=== PATIENT | male | born 1990 | race Caucasian/White ===

== ENCOUNTER 2021-03-14 11:19 | Emergency (ER) | payer OTHER, MEDICAID, SELFPAY ==
[2021-03-14] VITALS (8 sets, daily range): BP systolic 142; BP diastolic 85; PULSE 50–65; RESP 12–45; TEMP 36.2; O2SAT 97–99; BMI 12.7
--- NOTE | 2021-03-14 11:29 | DI.RAD.S_ITS ---
PROCEDURE: XR CHEST 1V INDICATIONS: chest pain TECHNIQUE: One view of the chest was acquired. COMPARISON: None. FINDINGS: Surgical changes and devices: None. Lungs and pleura: Lungs are clear. No pleural effusions or pneumothorax. Mediastinum: Mediastinal contours appear normal. Heart size is normal. Bones and chest wall: No suspicious bony lesions. Overlying soft tissues appear unremarkable. IMPRESSION: Normal for age, source of current chest pain symptoms is not seen. Dictated by: Blanco Nino M.D. on 03/14/2021 at 11:51 Approved by: Blanco Nino M.D. on 03/14/2021 at 11:51
--- NOTE | 2021-03-14 11:35 | ED_ITS ---
HPI - Chest Pain General Chief Complaint: Chest Pain Stated Complaint: chest pain/shortness of breath/collapsed Time Seen by Provider: 03/14/21 11:32 Source: patient and family Mode of arrival: Ambulatory Limitations: no limitations History of Present Illness HPI narrative: Otherwise healthy 30-year-old male here for evaluation of left- sided chest discomfort. He states that it started a couple days ago. It has b een somewhat intermittent but states he has had some sort of discomfort during this time. Did worsen this morning. No trauma. It is fairly pinpoint on the left side. Worse with taking a deep breath but not worse with movement or touching. No coughing. No sick contacts. Has not tried anything for the symptoms prior to arrival. Review of Systems Constitutional Constitutional: Denies fatigue and Denies fever(s) Eyes Eyes: Denies change in vision Cardiovascular Cardiovascular: Reports chest pain and Reports dyspnea Respiratory Respiratory: Reports pain on inspiration and Reports dyspnea Gastrointestinal Gastrointestinal: Denies abdominal pain, Denies nausea and Denies vomiting Genitourinary Genitourinary: Denies dysuria Genitourinary: Denies dysuria Musculoskeletal Musculoskeletal: Denies arthralgias and Denies myalgias Integumentary/Breasts Skin/Breast: Denies rash Neurologic Neurologic: Denies behavioral changes Psychiatric Psychiatric: Denies behavioral changes Endocrine Endocrine: Denies fatigue Hematologic/Lymphatic On Anticoagulants: No Allergic/Immunologic Allergic/Immunologic: Denies urticaria Patient History Medical History Healthy adult Social History Smoking Status: Current every day smoker Smoking Status: Current every day smoker alcohol intake frequency: 0-2 drinks per day Substance Use Type: does not use Exam Initial Vital Signs Initial Vital Signs: Vital Signs Pulse Oximetry 99 03/14/21 11:23 Const General: cooperative and No comfortable (Uncomfortable) Limitations: mental status not altered HENWI Head: normal to inspection and normocephalic Eyes General: appearance normal, both eyes and all related structures Chest Chest: No crepitus and No tenderness Resp Effort & Inspection: normal respiratory effort Auscultation: clear to auscultation bilaterally Cardio Rate: regular rate Rhythm: regular rhythm GI Inspection: non-distended Palpation: soft Skin Lesions: no lesions Rashes: no rashes Neuro General: patient alert and patient oriented x3 Cognition: normal cognition Speech: speech normal Extrem General: normal to inspection and capillary refill normal Psych Appearance: grossly normal and well kempt Course Orders Ordered: ED Orders 03/14/21 11:25 Complete Blood Count AUTO DIFF Stat Comprehensive Metabolic Panel Stat Lipase Stat Partial Thromboplastin Time Stat Prothrombin Time INR Stat Troponin & CK Cardiac Panel Stat 03/14/21 11:29 XR chest 1V Stat EKG-12 Lead Stat 03/14/21 11:44 COVID19 -Nasal swab/Pre-Proc Stat 03/14/21 12:24 D Dimer Stat Discontinued Medications Ketorolac Tromethamine (Ketorolac 60 Mg/2 Ml Vial) 30 mg IV NOW ONE Stop: 03/14/21 11:36 Last Admin: 03/14/21 12:05 Dose: 30 mg Documented by: MICHEAL Vital Signs Vital signs: Vital Signs - 8 hr 03/14/21 11:23 03/14/21 11:24 03/14/21 11:30 Temperature 97.2 F L Pulse Rate 62 65 Respiratory Rate 12 29 H Blood Pressure 142/85 H Pulse Oximetry 99 99 99 03/14/21 11:45 03/14/21 12:15 03/14/21 12:30 Temperature Pulse Rate 52 L 52 L 51 L Respiratory Rate 45 H 32 H 19 Blood Pressure Pulse Oximetry 98 98 97 03/14/21 12:45 03/14/21 13:00 Temperature Pulse Rate 50 L 55 L Respiratory Rate 24 23 Blood Pressure Pulse Oximetry 98 98 MDM - Chest Pain Lab Data Attestation: I reviewed the patient's lab results. Result diagrams: 03/14/21 11:25 03/14/21 11:25 Labs: Lab Results 03/14/21 03/14/21 03/14/21 Range/Units 11:25 11:25 11:25 WBC 5.7 (4.5-11.0) X10^3/uL RBC 4.49 L (4.5-5.9) X10^6/uL Hgb 14.6 (13.5-17.5) g/dL Hct 41.0 (41-53) % MCV 91.2 (80-100) fL MCH 32.5 (26-34) PG MCHC 35.7 (30-36) % RDW 13.0 (11.6-14.8) % Plt Count 220 (150-400) X10^3/uL Neut % (Auto) 57.3 (50-75) % Lymph % (Auto) 30.3 (25-40) % [place] % (Auto) 7.7 (3-14) % Eos % (Auto) 3.3 (2-4) % Baso % (Auto) 1.4 (0-2) % Neut # (Auto) 3300 (7148-3252) /uL Lymph # (Auto) 1700 (5539-9877) /uL [place] # (Auto) 400 (0-900) /uL Eos # (Auto) 200 (0-450) /uL Baso # (Auto) 100 (0-100) /uL PT 12.2 (10.1-12.7) SECONDS INR 1.1 (0.9-1.3) APTT 33 (26.4-36.2) SECONDS D-Dimer (<230) ng/mL Sodium 139 (137-145) mmol/L Potassium 4.2 (3.4-5.1) mmol/L Chloride 108 H (98-107) mmol/L Carbon Dioxide 24 (22-32) mmol/L BUN 11 (9-20) mg/dL Creatinine 0.61 L (0.66-1.25) mg/dL Estimated GFR > 60.0 (>60) mL/min BUN/Creatinine Ratio 18.0 (6-22) Glucose 92 (70-100) mg/dL Calcium 9.8 (8.4-10.2) mg/dL Total Bilirubin 1.2 (0.2-1.3) mg/dL AST 28 (17-59) IU/L ALT 19 (<50) IU/L Alkaline Phosphatase 70 (38-126) U/L Total Creatine Kinase 117 (55-170) U/L CK-MB (CK-2) 0.49 (<2.37) ng/mL CK-MB (CK-2) Rel Index 0.4 L (1.5-5.0) % Troponin I < 0.012 (0.01-0.034) ng/mL Total Protein 7.2 (6.3-8.2) g/dL Albumin 4.3 (3.5-5.0) g/dL Globulin 2.9 (1.7-4.1) g/dL Albumin/Globulin Ratio 1.5 (1.0-2.8) Lipase 43 (23-300) U/L SARS-CoV-2 (PCR) (Negative) 03/14/21 03/14/21 Range/Units 11:44 12:24 WBC (4.5-11.0) X10^3/uL RBC (4.5-5.9) X10^6/uL Hgb (13.5-17.5) g/dL Hct (41-53) % MCV (80-100) fL MCH (26-34) PG MCHC (30-36) % RDW (11.6-14.8) % Plt Count (150-400) X10^3/uL Neut % (Auto) (50-75) % Lymph % (Auto) (25-40) % [place] % (Auto) (3-14) % Eos % (Auto) (2-4) % Baso % (Auto) (0-2) % Neut # (Auto) (2944-5080) /uL Lymph # (Auto) (5525-2028) /uL [place] # (Auto) (0-900) /uL Eos # (Auto) (0-450) /uL Baso # (Auto) (0-100) /uL PT (10.1-12.7) SECONDS INR (0.9-1.3) APTT (26.4-36.2) SECONDS D-Dimer < 200 (<230) ng/mL Sodium (137-145) mmol/L Potassium (3.4-5.1) mmol/L Chloride (98-107) mmol/L Carbon Dioxide (22-32) mmol/L BUN (9-20) mg/dL Creatinine (0.66-1.25) mg/dL Estimated GFR (>60) mL/min BUN/Creatinine Ratio (6-22) Glucose (70-100) mg/dL Calcium (8.4-10.2) mg/dL Total Bilirubin (0.2-1.3) mg/dL AST (17-59) IU/L ALT (<50) IU/L Alkaline Phosphatase (38-126) U/L Total Creatine Kinase (55-170) U/L CK-MB (CK-2) (<2.37) ng/mL CK-MB (CK-2) Rel Index (1.5-5.0) % Troponin I (0.01-0.034) ng/mL Total Protein (6.3-8.2) g/dL Albumin (3.5-5.0) g/dL Globulin (1.7-4.1) g/dL Albumin/Globulin Ratio (1.0-2.8) Lipase (23-300) U/L SARS-CoV-2 (PCR) Negative (Negative) Imaging Data Chest x-ray: Radiologist's Impression: [address] [id number] ReportSigned Patient: Eliezer Haro AMR#: [id number]: 1990Acct:[id number]/Sex: te of Service: 03/14/21Loc: EDAccession Number: [id number] Procedure: XR chest 1V Ordering Provider: Nahum Bonner D.O. PROCEDURE: XR CHEST 1V INDICATIONS: chest pain TECHNIQUE: One view of the chest was acquired. COMPARISON: None. FINDINGS: Surgical changes and devices: None. Lungs and pleura: Lungs are clear. No pleural effusions or pneumothorax. Mediastinum: Mediastinal contours appear normal. Heart size is normal. Bones and chest wall: No suspicious bony lesions. Overlying soft tissues appear unremarkable. IMPRESSION: Normal for age, source of current chest pain symptoms is not seen. Dictated by: Blanco Nino M.D. on 03/14/2021 at 11:51 Approved by: Blanco Nino M.D. on 03/14/2021 at 11:51 ECG Data Attestation: I personally reviewed and interpreted this ECG as follows: Prior ECG tracings: not available for review Interpretation: Sinus rhythm Ventricular rate is 64 Sinus arrhythmia Perineural 03/24/2001 milliseconds Normal QRS QTC 416 T-wave inversions [address] elevations MDM Narrative Medical decision making narrative: Patient reports improvement of symptoms after Toradol. His chest x-ray EKG labs all unremarkable. He does have pinpoint tenderness to his left anterior chest wall. Low suspicion for ACS/PE. Low suspicion for pneumothorax. I do suspect this is musculoskeletal. He has no skin changes over the area. I discussed this with him. We did discuss treatments he can do at home. Feel we can discharge home without further workup. He was given return precautions. Expressed understanding agreement. Discharge Plan Departure Patient Disposition: Home Clinical Impression: Acute chest wall pain Instructions: DI for Atypical Chest Pain Activity Restrictions/Additional Instructions: Recommend that you continue with Tylenol/ibuprofen. Also recommend that you hold the area if you are going to call for yawns this may help your symptoms. Contact your primary provider for follow-up. Return to the emergency department for any new or worsening symptoms
[2021-03-14 11:56] LABS: Add Manual Diff / Slide Review NO; Basophils Absolute Auto 100 /uL (0-100); Basophils Percent Auto 1.4 % (0-2); Eosinophils Absolute Auto 200 /uL (0-450); Eosinophils Percent Auto 3.3 % (2-4); Hemoglobin 14.6 g/dL (13.5-17.5); Lymphocytes Absolute Auto 1700 /uL (1100-4500); Lymphocytes Percent Auto 30.3 % (25-40); Mean Corpuscular HGB Conc 35.7 % (30-36); Mean Corpuscular Hemoglobin 32.5 PG (26-34); Mean Corpuscular Volume 91.2 fL (80-100); Monocytes Absolute Auto 400 /uL (0-900); Monocytes Percent Auto 7.7 % (3-14); Neutrophils Absolute Auto 3300 /uL (1500-7000); Neutrophils Percent Auto 57.3 % (50-75); Platelet Count 220 X10^3/uL (150-400); Red Blood Cell Count 4.49 X10^6/uL (4.5-5.9); White Blood Cell Count 5.7 X10^3/uL (4.5-11.0)
[2021-03-14 12:02] LABS: COVID19 -Nasal RAPID Negative (Negative)
[2021-03-14] MEDS: KETOROLAC 60 MG/2 ML VIAL 30 MG IV (12:05)
[2021-03-14 12:06] LABS: INR 1.1 (0.9-1.3); Prothrombin Time 12.2 SECONDS (10.1-12.7)
[2021-03-14 12:07] LABS: Alanine Aminotransferase 19 IU/L (<50); Albumin 4.3 g/dL (3.5-5.0); Albumin Globulin Ratio 1.5 (1.0-2.8); Alkaline Phosphatase 70 U/L (38-126); Aspartate Aminotransferase 28 IU/L (17-59); Bilirubin Total 1.2 mg/dL (0.2-1.3); Blood Urea Nitrogen 11 mg/dL (9-20); Calcium 9.8 mg/dL (8.4-10.2); Carbon Dioxide 24 mmol/L (22-32); Chloride 108 mmol/L (98-107); Creatine Kinase 117 U/L (55-170); Estimated Glomerular Filt Rate > 60.0 mL/min (>60); Globulin 2.9 g/dL (1.7-4.1); Glucose 92 mg/dL (70-100); HEMOLYSIS 22 (0-50); Lipase 43 U/L (23-300); Potassium 4.2 mmol/L (3.4-5.1); Sodium 139 mmol/L (137-145); Total Protein 7.2 g/dL (6.3-8.2)
[2021-03-14 12:09] LABS: PTT Partial Thromboplastin Tim 33 SECONDS (26.4-36.2)
[2021-03-14 12:18] LABS: Troponin I < 0.012 ng/mL (0.01-0.034)
[2021-03-14 12:41] LABS: CKMB % Relative Index 0.4 % (1.5-5.0); Creatine Kinase MB 0.49 ng/mL (<2.37)
[2021-03-14 12:44] LABS: D Dimer < 200 ng/mL (<230)
== END 2021-03-14 13:03 | disposition home or self-care (01) ==
PROVIDERS: Emergency Provider Emergency Medicine
DX: R07.89 Other chest pain (principal); Z20.822 Contact with and (suspected) exposure to COVID-19
CPT/HCPCS: 36415; 71045; 80053; 82550; 82553; 83690; 84484; 85025; 85379; 85610; 85730; 87635; 93005; 96374; 99284; C9803; J1885